=== PATIENT | male | born 1955 | race Caucasian/White ===

== ENCOUNTER 2017-03-24 09:58 | Emergency (ER) | payer OTHER ==
--- NOTE | 2017-03-24 11:18 | Emergency Department Record ---
History of Present Illness - General Chief complaint: ENT Stated complaint: SORE THROAT/COUGH Time Seen by Provider: 03/24/17 11:08 Source: Patient - History of Present Illness Initial comments: The patient states he coughed yesterday very very card due to a tickly in the back of his throat on the right side. He ate some thick potato chips earlier but didn't feel like they got stuck in his throat at the time. Last evening he had two more episodes of this which were also severe. His family made him come here today to be checked. 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 He denies SOB now, f,c, change in his sputum color. He does have a new inhaler from his PCP which he rarely uses. - Related Data Home Medications Medication Instructions Recorded Confirmed Last Taken Albuterol Sulfate [Ventolin Hfa] 1 - 2 puff IH .EVERY 4-6 HRS PRN 03/24/1703/24 Unknown Aspirin [Adult Low Dose Aspirin EC] 81 mg PO DAILY 03/24/17 03/24/17 03/24/17 Glycopyrrolate/Formoterol Fum 1 puff INH ASDIR 03/24/17 03/24/17 03/24/17 [Bevespi Aerosphere Inhaler] Hydrochlorothiazide [Hctz 12.5MG] 12.5 mg PO DAILY 03/24/17 03/24/17 03/24/17 Nebivolol HCl [Bystolic] 5 mg PO ASDIR 03/24/17 03/24/17 03/24/17 Nitroglycerin [Nitrostat] 0.4 mg SL ASDIR 03/24/17 03/24/17 Unknown Rosuvastatin Calcium [Rosuvastatin 5 mg PO DAILY 03/24/17 03/24/17 03/24/17 Calcium] Previous Rx's Medication Instructions Recorded Promethazine HCl/Codeine 5 - 10 ml PO .AT BEDTIME PRN #118 03/24/17 [Phenergan W/Codeine] ml Allergies Allergy/AdvReac Type Severity Reaction Status Date / Time No Known Drug Allergies Allergy Verified 03/24/17 10:48 Review of Systems Reviewed: No additional complaints except as noted below Constitutional: Reports: As per HPI. Denies: Chills, Fever, Malaise, Night sweats, Weakness, Weight change Eyes: Reports: As per HPI. Denies: Eye discharge, Eye pain, Photophobia, Vision change ENT: Reports: As per HPI. Denies: Congestion, Dental pain, Ear pain, Epistaxis , Hearing loss, Throat pain Respiratory: Reports: As per HPI. Denies: Cough, Dyspnea, Hemoptysis, Stridor, Wheezes Cardiovascular: Reports: As per HPI. Denies: Arrhythmia, Chest pain, Dyspnea on exertion, Edema, Murmurs, Orthopnea, Palpitations, Paroxysmal nocturnal dyspnea, Rheumatic Fever, Syncope Endocrine: Reports: As per HPI. Denies: Fatigue, Heat or cold intolerance, Polydipsia, Polyuria Gastrointestinal: Reports: As per HPI. Denies: Abdominal pain, Constipation, Diarrhea, Hematemesis, Hematochezia, Melena, Nausea, Vomiting Genitourinary: Reports: As per HPI. Denies: Dysuria, Frequency, Hematuria, Incontinence, Retention, Testicular pain, Testicular mass, Urgency Musculoskeletal: Reports: As per HPI. Denies: Arthralgia, Back pain, Gout, Joint swelling, Myalgia, Neck pain Skin: Reports: As per HPI. Denies: Bruising, Change in color, Change in hair/ nails, Lesions, Pruritus, Rash Neurological: Reports: As per HPI. Denies: Abnormal gait, Confusion, Headache, Numbness, Paresthesias, Seizure, Tingling, Tremors, Vertigo, Weakness Psychiatric: Reports: As per HPI. Denies: Anxiety, Auditory hallucinations, Depression, Homicidal thoughts, Suicidal thoughts, Visual hallucinations Hematological/Lymphatic: Reports: As per HPI. Denies: Anemia, Blood Clots, Easy bleeding, Easy bruising, Swollen glands Past Medical History - SOCIAL HISTORY Smoking Status: Former smoker - RESPIRATORY Hx Respiratory Disorders: Yes Hx COPD: Yes - CARDIOVASCULAR Hx Cardio Disorders: No - NEURO Hx Neuro Disorders: No - GI Hx GI Disorders: No - Hx Genitourinary Disorders: No - ENDOCRINE Hx Endocrine Disorders: No - MUSCULOSKELETAL Hx Musculoskeletal Disorders: Yes Hx Arthritis: Yes - PSYCH Hx Psych Problems: No - HEMATOLOGY/ONCOLOGY Hx Hematology/Oncology Disorders: No Physical Exam - General General Appearance: Alert, Oriented x3, Cooperative, No acute distress - Head Head exam: Normal inspection - Eye Eye exam: Normal appearance, PERRL, EOMI Pupils: Normal accommodation - ENT ENT exam: Normal exam, Mucous membranes moist, Normal external ear exam, Normal orophraynx, TM's normal bilaterally Ear exam: Normal external inspection. negative: External canal tenderness Nasal Exam: Normal inspection. negative: Discharge, Sinus tenderness Mouth exam: Normal external inspection, Tongue normal Teeth exam: Normal inspection. negative: Dental caries Throat exam: Normal inspection, Other (no FB visualized, throat open down to epiglottis). negative: Tonsillar erythema, Tonsillar exudate - Neck Neck exam: Normal inspection, Full ROM. negative: Tenderness - Respiratory Respiratory exam: Normal lung sounds bilaterally, Decreased breath sounds. negative: Accessory muscle use, Rales, Respiratory distress, Stridor, Wheezes - Cardiovascular Cardiovascular Exam: Regular rate, Normal rhythm, Normal heart sounds - GI/Abdominal GI/Abdominal exam: Soft, Normal bowel sounds. negative: Tenderness - Rectal Rectal exam: Deferred - exam: Deferred - Extremities Extremities exam: Normal inspection, Full ROM, Normal capillary refill. negative: Calf tenderness, Pedal edema, Tenderness - Back Back exam: Reports: Normal inspection, Full ROM. Denies: CVA tenderness (R), CVA tenderness (L), Muscle spasm, Rash noted, Tenderness - Neurological Neurological exam: Alert, CN II-XII intact, Normal gait, Oriented X3, Reflexes normal - Psychiatric Psychiatric exam: Normal affect, Normal mood - Skin Skin exam: Dry, Intact, Normal color, Warm Course - Reevaluation(s) Reevaluation #1: Results reviewed, negative CXR, soft tissue neck, and rapid strep. Will discharge patient on phenergan for his cough. 03/24/17 12:10 Medical Decision Making - Management Options MDM Management: No Additional Work-up Planned Disposition Disposition: Discharge Clinical Impression: Coughing COPD (chronic obstructive pulmonary disease) Qualifiers: COPD type: unspecified COPD Qualified Code(s): J44.9 - Chronic obstructive pulmonary disease, unspecified Disposition: Home, Self-Care Condition: (1) Good Instructions: Chronic Cough (ED), Analgesic/Antihistamine/Antitussive (By mouth ) Additional Instructions: Phenergan elixir as directed as needed for cough, throat irritation. Lozenges, throat sprays, frequent sips of liquid. Cover mouth and nose with pillow when coughing in spasms to protect airway. Bedside vaporizer. Follow up with PCP as needed. Prescriptions: Promethazine HCl/Codeine [Phenergan W/Codeine] 5 - 10 ml PO .AT BEDTIME PRN # 118 ml PRN Reason: Cough Quality - Quality Measures Quality Measures: N/A - Blood Pressure Screening Does Patient Have Any of the Following: No Blood Pressure Classification: Pre-Hypertensive BP Reading Systolic Measurement: 123 Diastolic Measurement: 80 Screening for High Blood Pressure: < Normal BP, F/U Not Required > [[id number]]
--- NOTE | 2017-03-25 08:20 | RADIOLOGY REPORT ---
EXAM: CHEST, TWO VIEWS HISTORY: SORE THROAT. TECHNIQUE: Frontal and lateral views of the chest were obtained. Comparison: 08/08/15 chest. FINDINGS: The heart size is normal. Median sternotomy wires. The lungs are hyperinflated, but clear. Osteopenia. No pneumothorax. IMPRESSION: UNDERLYING HYPERINFLATION. THE LUNGS ARE CLEAR. JOB NUMBER: [id number] MTDD
--- NOTE | 2017-03-25 08:21 | RADIOLOGY REPORT ---
EXAM: SOFT TISSUE NECK HISTORY: SORE THROAT. TECHNIQUE: Two views of the neck were obtained using soft tissue technique. Comparison: None. FINDINGS: The airway is widely patent. The epiglottis and aryepiglottic folds are normal. The prevertebral soft tissues are normal. IMPRESSION: NEGATIVE SOFT TISSUE NECK EXAMINATION. JOB NUMBER: [id number] MTDD
== END 2017-03-24 12:26 | disposition home or self-care (01) ==
LOC: ER 09:58
DX: J44.9 Chronic obstructive pulmonary disease, unspecified (principal); J02.9 Acute pharyngitis, unspecified; Z87.891 Personal history of nicotine dependence
CPT/HCPCS: 70360; 71020; 87880; 99283; 99284